=== PATIENT | male | born 1960 | race Caucasian/White ===

== ENCOUNTER 2018-09-13 10:35 | Emergency (ER) | payer SELFPAY ==
[~2018-09-13] VITALS: Ht 185.4 cm; Wt 86.2 kg
[2018-09-13] MEDS ORDERED: NEOMYCIN/POLYMYX/BACITR OINT 0.9 GM PKT TOP ONE (11:15)
[2018-09-13] MEDS ORDERED: TETANUS/DIPHTHERIA TOX ADULT 0.5 ML SYR IM ONE (11:15)
[2018-09-13] MEDS ORDERED: LIDOCAINE 1% W/EPINEPHRINE 20 ML VIAL INJ ONE (11:15)
== END 2018-09-13 12:00 | disposition home or self-care (01) ==
LOC: ER 10:35
DX: S61.512A Laceration without foreign body of left wrist, initial encounter (principal); W26.8XXA Contact with other sharp object(s), not elsewhere classified, initial encounter; Y92.008 Other place in unspecified non-institutional (private) residence as the place of occurrence of the external cause
CPT/HCPCS: 90714; 99284

== ENCOUNTER → 2018-09-19 | Emergency (ER) | payer SELFPAY | END | disposition left against medical advice (07) | LOC: ER 18:52 | DX: M25.539 Pain in unspecified wrist (principal) ==

== ENCOUNTER → 2023-08-18 | Day surgery (SDC) | payer OTHER ==
[2023-08-17 12:10] LABS: BASOPHILS # (AUTO) 0.1 (0.0-0.1); BASOPHILS % 1.3 % (0.0-1.0); EOSINOPHILS # (AUTO) 0.3 (0.0-0.4); EOSINOPHILS % 5.7 % (0.0-6.0); HEMATOCRIT 29.1 % (38.2-49.6); HEMOGLOBIN 9.8 g/dL (14.0-18.0); LYMPHOCYTES # (AUTO) 1.7 (1.0-3.2); LYMPHOCYTES % 34.9 % (18.0-39.1); MEAN CORPUSCULAR HGB CONC 33.7 g/dL (31-35); MONOCYTES # (AUTO) 0.4 (0.2-0.8); MONOCYTES % 8.4 % (4.4-11.3); NEUTROPHILS # (AUTO) 2.3 (2.1-6.9); NEUTROPHILS % 49.3 % (38.7-80.0); PLATELET COUNT 185 x10e3/uL (140-360); RED BLOOD COUNT 2.88 x10e6/uL (4.3-5.7); RED CELL DISTRIBUTION WIDTH 12.7 % (11.7-14.4); WHITE BLOOD COUNT 4.75 x10e3/uL (4.8-10.8)
[~2023-08-18] MED LIST: FENTANYL CITRATE/PF 100MCG/2 ML INJ ONE; GLUCAGON FOR INJ 1 MG VIAL ONE; HYOSCYAMINE SULFATE 0.5 MG/ML INJ ONE; LIDOCAINE HCL 2% LOCAL INJ 5 ML SDV VIAL INJ ONE; LOW DOSE ASPIRI81 MG PO; METOPROLOL SUCC25 MG PO; PHYTONADIONE 10MG/ML INJ 20 MG in SODIUM CHLORIDE 0.9% 100 ML IV ONE; PROPOFOL IV EMULSION 10 MG/ML 20 ML VIAL ONE
[2023-08-18] MEDS: LACTATED RINGER'S 1,000 ML ONE (10:32)
[2023-08-18 13:35] VITALS: BP 114/80; PULSE 59; RESP 18; TEMP 97.7; O2SAT 100
[2023-08-18 13:39] LABS: INR 1.02; PARTIAL THROMBOPLASTIN TIME 28.6 seconds (23.8-35.5); PROTHROMBIN TIME 14.1 seconds (11.9-14.5)
[2023-08-18 13:46] LABS: % IRON SATURATION 32 % (15-50); IRON 98 ug/dL (65-175); TOTAL IRON BINDING CAPACITY 305 ug/dL (261-478); TRANSFERRIN 218 mg/dL (174-364)
== END | disposition home or self-care (01) ==
LOC: OR 09:21
PROVIDERS: ATTEND Internal Medicine Gastroenterology
DX: K29.70 Gastritis, unspecified, without bleeding (principal); D12.8 Benign neoplasm of rectum; K20.90 Esophagitis, unspecified without bleeding; K44.9 Diaphragmatic hernia without obstruction or gangrene; K57.30 Diverticulosis of large intestine without perforation or abscess without bleeding; R19.5 Other fecal abnormalities; K64.8 Other hemorrhoids; Z71.3 Dietary counseling and surveillance; D64.9 Anemia, unspecified; I10 Essential (primary) hypertension; Z71.89 Other specified counseling; I48.91 Unspecified atrial fibrillation; Z88.0 Allergy status to penicillin; Z01.810 Encounter for preprocedural cardiovascular examination; Z01.812 Encounter for preprocedural laboratory examination; Z79.82 Long term (current) use of aspirin; Z79.899 Other long term (current) drug therapy; Z87.19 Personal history of other diseases of the digestive system
CPT/HCPCS: 36415 ×2; 43239; 45385; 82607; 82746; 83540; 84466; 85025; 85610; 85730; 93005; J2470; J3430; J7050; J7121; 45378; J1610; J1980; J2001

== ENCOUNTER → 2023-09-28 | Outpatient (REF) | payer OTHER ==
[~2023-09-28] MED LIST changes: -FENTANYL CITRATE/PF 100MCG/2 ML INJ ONE; -GLUCAGON FOR INJ 1 MG VIAL ONE; -HYOSCYAMINE SULFATE 0.5 MG/ML INJ ONE; -LIDOCAINE HCL 2% LOCAL INJ 5 ML SDV VIAL INJ ONE; -PHYTONADIONE 10MG/ML INJ 20 MG in SODIUM CHLORIDE 0.9% 100 ML IV ONE; -PROPOFOL IV EMULSION 10 MG/ML 20 ML VIAL ONE
== END ==
LOC: NM 08:25
PROVIDERS: ATTEND Nurse Practitioner
DX: R10.10 Upper abdominal pain, unspecified (principal); K29.60 Other gastritis without bleeding; D64.89 Other specified anemias
CPT/HCPCS: 78227; A9537

== ENCOUNTER → 2023-12-14 | Outpatient (REF) | payer OTHER | LOC: DX 08:08 | PROVIDERS: ATTEND Nurse Practitioner | DX: R14.0 Abdominal distension (gaseous) (principal); R10.10 Upper abdominal pain, unspecified | CPT/HCPCS: 74250 ==

== ENCOUNTER → 2023-12-21 | Outpatient (REF) | payer OTHER ==
[~2023-12-21] MED LIST changes: +IOPAMIDOL 370 MG/ML 100 ML INFUS..BTL INJ ONE
[2023-12-21 15:05] LABS: CREATININE, SERUM 0.79 mg/dL (0.72-1.25)
== END ==
LOC: CT 13:39
PROVIDERS: ATTEND Nurse Practitioner
DX: R14.0 Abdominal distension (gaseous) (principal); R10.10 Upper abdominal pain, unspecified
CPT/HCPCS: 36415; 74177; 82565; 84520; Q9967

== ENCOUNTER 2023-12-26 20:36 | Observation (INO) | payer OTHER, MEDICARE ==
[~2023-12-26] VITALS: Ht 185.4 cm; Wt 63.5 kg
[~2023-12-26 20:36] MED LIST changes: -IOPAMIDOL 370 MG/ML 100 ML INFUS..BTL INJ ONE
[2023-12-26 21:31] VITALS: TEMP 98.5
[2023-12-26 21:56] LABS: BASOPHILS # (AUTO) 0.1 (0.0-0.1); BASOPHILS % 0.9 % (0.0-1.0); EOSINOPHILS # (AUTO) 0.3 (0.0-0.4); HEMATOCRIT 30.1 % (38.2-49.6); LYMPHOCYTES # (AUTO) 1.7 (1.0-3.2); MEAN CORPUSCULAR HEMOGLOBIN 34.1 pg (28-32); MEAN CORPUSCULAR HGB CONC 33.2 g/dL (31-35); MEAN CORPUSCULAR VOLUME 102.7 fL (81-99); MONOCYTES # (AUTO) 0.5 (0.2-0.8); MONOCYTES % 7.9 % (4.4-11.3); NEUTROPHILS # (AUTO) 3.9 (2.1-6.9); NEUTROPHILS % 59.9 % (38.7-80.0); PLATELET COUNT 177 x10e3/uL (140-360); RED BLOOD COUNT 2.93 x10e6/uL (4.3-5.7); RED CELL DISTRIBUTION WIDTH 12.4 % (11.7-14.4); WHITE BLOOD COUNT 6.45 x10e3/uL (4.8-10.8)
[2023-12-26 22:14] LABS: ALANINE AMINOTRANSFERASE 41 IU/L (0-55); ALBUMIN 4.2 g/dL (3.5-5.0); ALBUMIN/GLOBULIN RATIO 1.4 (0.8-2.0); ALKALINE PHOSPHATASE 52 IU/L (40-150); ANION GAP 12.4 mmol/L (8-16); BILIRUBIN,TOTAL 0.4 mg/dL (0.2-1.2); BLOOD UREA NITROGEN 8 mg/dL (7-26); BUN/CREATININE RATIO 10 (6-25); CALCIUM 9.1 mg/dL (8.4-10.2); CARBON DIOXIDE 27 mmol/L (22-29); CHLORIDE 101 mmol/L (98-107); CREATINE KINASE 2201 IU/L (30-200); CREATININE, SERUM 0.78 mg/dL (0.72-1.25); EST GLOMERULAR FILTRATION RATE 99 ML/MIN (>=60); GLUCOSE 74 mg/dL (74-118); SODIUM 137 mmol/L (136-145); TOTAL PROTEIN 7.1 g/dL (6.5-8.1)
[2023-12-26 22:19] LABS: POTASSIUM 3.4 mmol/L (3.5-5.1); TROPONIN I 0.004 ng/mL (0-0.300)
[2023-12-26] MEDS: SODIUM CHLORIDE 0.9% 1000ML 1,000 ML IV STA ×2 (22:24)
[2023-12-26] MEDS: FAMOTIDINE 20 MG/2 ML VIAL IV STA (22:24)
[2023-12-26] MEDS: ONDANSETRON HCL INJ 2MG/ML 2ML 2 MG/ML VIAL IV STA (22:24)
[2023-12-26] MEDS ORDERED: IOPAMIDOL 370 MG/ML 100 ML INFUS..BTL INJ ONE (22:30)
[2023-12-26 22:45] LABS: LIPASE < 4 U/L (8-78)
[2023-12-26 22:53] LABS: BILIRUBIN,URINE NEGATIVE (NEGATIVE); CLARITY,URINE SL CLOUDY (CLEAR); COLOR,URINE YELLOW (YELLOW); GLUCOSE, URINE NEGATIVE (NEGATIVE); KETONES,URINE NEGATIVE (NEGATIVE); LEUKOCYTE ESTERASE ,URINE NEGATIVE (NEGATIVE); NITRITE,URINE NEGATIVE (NEGATIVE); PH,URINE 7.5 (5 - 7); PROTEIN,URINE DIPSTICK NEGATIVE (NEGATIVE); URINE UROBILINOGEN 0.2 mg/dL (0.2 - 1)
[2023-12-26 22:54] LABS: EPITHELIAL CELLS,URINE FEW /LPF; RBC,URINE 0-5 /HPF (0-5); WBC,URINE (MAN) 0-5 /HPF (0-5)
[2023-12-26 22:55] LABS: BACTERIA,URINE MANY /HPF
[2023-12-27] VITALS (7 sets, daily range): BP systolic 130–165; BP diastolic 67–98; PULSE 42–82; RESP 13–20; TEMP 97.5–98.7; O2SAT 100
[2023-12-27] MEDS ORDERED: ONDANSETRON HCL INJ 2MG/ML 2ML 2 MG/ML VIAL IV PRN (01:15)
[2023-12-27] MEDS: SODIUM CHLORIDE 0.9% 1000ML 1,000 ML IV SCH (02:50)
[2023-12-27] MEDS: ACETAMINOPHEN 325 MG TAB PO ONE (11:26)
[2023-12-27] MEDS: Morphine 4mg INJECTION 4 MG/ML INJ IV PRN (21:25)
[2023-12-27] MEDS: DONNATAL/LIDOCAINE/MAALOX 30 ML SUSP PO ONE (22:36)
[2023-12-28 00:18] VITALS: BP 130/76; PULSE 49; RESP 18; TEMP 97.5; O2SAT 99
[2023-12-28 02:58] LABS: % IRON SATURATION 19 % (15-50); IRON 63 ug/dL (65-175); TOTAL IRON BINDING CAPACITY 339 ug/dL (261-478); TRANSFERRIN 242 mg/dL (174-364)
[2023-12-28 03:34] VITALS: BP 144/74; PULSE 52; RESP 18; TEMP 98.4; O2SAT 99
[2023-12-28 06:00] LABS: BASOPHILS # (AUTO) 0.1 (0.0-0.1); BASOPHILS % 1.4 % (0.0-1.0); EOSINOPHILS # (AUTO) 0.3 (0.0-0.4); EOSINOPHILS % 6.1 % (0.0-6.0); HEMATOCRIT 28.6 % (38.2-49.6); HEMOGLOBIN 9.8 g/dL (14.0-18.0); LYMPHOCYTES # (AUTO) 1.3 (1.0-3.2); LYMPHOCYTES % 26.6 % (18.0-39.1); MEAN CORPUSCULAR HEMOGLOBIN 34.1 pg (28-32); MEAN CORPUSCULAR HGB CONC 34.3 g/dL (31-35); MEAN CORPUSCULAR VOLUME 99.7 fL (81-99); MONOCYTES # (AUTO) 0.5 (0.2-0.8); MONOCYTES % 9.6 % (4.4-11.3); NEUTROPHILS # (AUTO) 2.7 (2.1-6.9); NEUTROPHILS % 56.1 % (38.7-80.0); PLATELET COUNT 166 x10e3/uL (140-360); RED BLOOD COUNT 2.87 x10e6/uL (4.3-5.7); RED CELL DISTRIBUTION WIDTH 12.8 % (11.7-14.4); WHITE BLOOD COUNT 4.88 x10e3/uL (4.8-10.8)
[2023-12-28 06:18] LABS: ALBUMIN 3.4 g/dL (3.5-5.0); ALBUMIN/GLOBULIN RATIO 1.4 (0.8-2.0); ANION GAP 9.7 mmol/L (8-16); BILIRUBIN,TOTAL 0.7 mg/dL (0.2-1.2); CALCIUM 8.5 mg/dL (8.4-10.2); CREATININE, SERUM 0.73 mg/dL (0.72-1.25); POTASSIUM 3.7 mmol/L (3.5-5.1); TOTAL PROTEIN 5.9 g/dL (6.5-8.1)
[2023-12-28 08:54] VITALS: BP_SYST 150; PULSE 44; RESP 18; TEMP 97.7; O2SAT 100
[2023-12-28 09:02] VITALS: BP 150/74; PULSE 44; RESP 18; TEMP 97.7; O2SAT 100
[2023-12-28] MEDS ORDERED: PROTONIX20 MG PO (11:27)
== END 2023-12-28 12:30 | disposition home or self-care (01) ==
LOC: ER 20:42 → ERHOLD 12-27 01:15 → MED/SURG2 12-27 01:55
PROVIDERS: ADMIT Internal Medicine; ATTEND Internal Medicine
DX: K29.70 Gastritis, unspecified, without bleeding (principal); R33.9 Retention of urine, unspecified; R94.4 Abnormal results of kidney function studies; K82.1 Hydrops of gallbladder; I10 Essential (primary) hypertension; I44.7 Left bundle-branch block, unspecified; R00.1 Bradycardia, unspecified; Z71.3 Dietary counseling and surveillance; Z68.1 Body mass index [BMI] 19.9 or less, adult; Z79.899 Other long term (current) drug therapy; Z79.82 Long term (current) use of aspirin
CPT/HCPCS: 36415 ×2; 74177; 76705; 78227; 80053 ×2; 81001; 82550 ×2; 82607; 82746; 83540; 83690; 84466; 84484; 85025 ×2; 85045; 93005; 99284; A9537; G0378 ×2; J2270 ×2; J2405; J2470 ×2; J7030 ×2; Q9967

== ENCOUNTER → 2024-08-25 | Day surgery (SDC) | payer MEDICARE ==
[2024-08-22 14:23] LABS: BASOPHILS % 1.5 % (0.0-1.0); EOSINOPHILS % 5.5 % (0.0-6.0); LYMPHOCYTES % 29.4 % (18.0-39.1); MONOCYTES % 8.2 % (4.4-11.3); NEUTROPHILS % 55.2 % (38.7-80.0); RED CELL DISTRIBUTION WIDTH 12.7 % (11.7-14.4)
[2024-08-22 15:03] LABS: EST GLOMERULAR FILTRATION RATE 98.0 ML/MIN (>=60)
[~2024-08-25] MED LIST changes: +ACETAMINOPHEN 1000 MG/100 ML 100 ML IV ONE; +ATROPINE SULFATE 1 MG/ML VIAL ONE; +DEXAMETHASONE SOD PHOS INJ 4 MG/ML SDV ONE; +FAMOTIDINE 20 MG/2 ML VIAL IV ONE; +FENTANYL CITRATE/PF 100MCG/2 ML INJ ONE; +GLYCOPYRROLATE INJ 0.2 MG/ML VIAL ONE; +LIDOCAINE HCL 2% LOCAL INJ 5 ML SDV VIAL INJ ONE; +ONDANSETRON HCL INJ 2MG/ML 2ML 2 MG/ML VIAL ONE; +PROPOFOL IV EMULSION 10 MG/ML 20 ML VIAL ONE; +PROTONIX20 MG PO; +ROCURONIUM BROMIDE 1 ML IV ONE; +SEVOFLURANE INHAL SOLN 250 ML PEN BTL ONE; +SUCRALFATE1 GM PO; +SUGAMMADEX SODIUM 200 MG/2 ML VIAL IV ONE
[2024-08-25] MEDS: LACTATED RINGER'S 1,000 ML ONE (07:03)
[2024-08-25] MEDS: FENTANYL CITRATE/PF 100MCG/2 ML INJ ONE (10:21)
[2024-08-25] MEDS: HYDROCODONE/APAP 7.5MG-325MG 1 EA TAB ONE (10:45)
[2024-08-25 11:20] VITALS: BP 170/80; PULSE 50; RESP 16; O2SAT 96
== END | disposition home or self-care (01) ==
LOC: OR 06:27
PROVIDERS: ATTEND Surgery
DX: K81.1 Chronic cholecystitis (principal); K85.90 Acute pancreatitis without necrosis or infection, unspecified; D64.9 Anemia, unspecified; K21.9 Gastro-esophageal reflux disease without esophagitis; I10 Essential (primary) hypertension; I48.91 Unspecified atrial fibrillation; Z01.810 Encounter for preprocedural cardiovascular examination; Z01.812 Encounter for preprocedural laboratory examination; Z01.818 Encounter for other preprocedural examination; Z79.82 Long term (current) use of aspirin; Z79.899 Other long term (current) drug therapy; Z87.891 Personal history of nicotine dependence
CPT/HCPCS: 36415; 47563; 71046; 76000; 80053; 85025; 88304; 93005; C1766; J0131; J0461; J1100; J1308; J2003; J2405; J2704; J3010; J7121